=== PATIENT | female | born 2000 | race Caucasian/White ===

== ENCOUNTER 2022-01-20 16:09 | Emergency (ER) | payer MEDICAID ==
[2022-01-20] MEDS ORDERED: Acetaminophen 500 MG Tab PO ONE (17:46)
== END 2022-01-20 18:06 | disposition home or self-care (01) ==
LOC: DL.ED 16:09
DX: S83.411A Sprain of medial collateral ligament of right knee, initial encounter (principal); X50.1XXA Overexertion from prolonged static or awkward postures, initial encounter; Y93.64 Activity, baseball
CPT/HCPCS: 73562-RT; 99282; 99283; A9270-GY

== ENCOUNTER 2022-03-19 19:59 | Emergency (ER) | payer BC, MEDICAID ==
[2022-03-19] MEDS ORDERED: Ondansetron 4 MG Tab.DIS PO ONE (20:00)
[2022-03-19] MEDS ORDERED: Sodium Chloride 0.9% 1,000 ML IV ONE (20:26)
[2022-03-19] MEDS ORDERED: HYDROmorphone 0.5 MG/0.5 ML Syringe IVPUSH ONE ×2 (20:27→20:58)
[2022-03-19] MEDS ORDERED: Ondansetron 4 MG/2 ML SDV IVPUSH ONE (20:27)
[2022-03-19] MEDS ORDERED: Ondansetron 4 MG Tab.DIS ONE (22:17)
== END 2022-03-19 22:25 | disposition home or self-care (01) ==
LOC: DL.ED 19:59
DX: M25.561 Pain in right knee (principal)
CPT/HCPCS: 73560; 96374; 96375; 99283; A9270; J1170; J2405; J7030